=== PATIENT | female | born 1975 | race Caucasian/White ===

== ENCOUNTER 2017-04-28 00:39 | Emergency (ER) | payer OTHER ==
[~2017-04-28] VITALS: Ht 167.6 cm; Wt 84.1 kg
[~2017-04-28 00:39] MED LIST: FENO145T2 PO; KLON2TAB PO; OMEP20TA39 PO; TRAZ100 PO
[2017-04-28 00:45] VITALS: BP 153/80; PULSE 92; RESP 18; TEMP 98.1; O2SAT 97
[2017-04-28] MEDS ORDERED: TRAZ100T6 PO (01:03)
[2017-04-28] MEDS ORDERED: KLON2TAB PO (01:03)
[2017-04-28] MEDS ORDERED: OMEP40CA2 PO (01:03)
[2017-04-28] MEDS ORDERED: ZANT150T2 PO (01:03)
--- NOTE | 2017-04-28 02:22 | PD ---
HPI Chief Complaint: Abdominal Pain Time Seen by Provider: 02:08 Travel History International Travel<30 days: No Contact w/Intl Traveler<30days: No Traveled to known affect area: No History of Present Illness HPI 41-year-old female complains of right upper quadrant epigastric abdominal pain. Patient states the pain started about 2 weeks ago and has been constant since then. Patient states the pain is sharp pain. Patient states the pain radiates to the right flank area. Patient denies any fever chills. Patient states that she has intermittent nausea vomiting with the pain. Patient denies any dysuria or frequency. Patient denies any vaginal discharge or bleeding. Patient status post cholecystectomy and hysterectomy. PFSH Past Medical History Hx Anticoagulant Therapy: No Arthritis: No Asthma: No Autoimmune Disease: No Anxiety: Yes Depression: Yes Heart Rhythm Problems: No Cancer: No Cardiac Catheterization: No Cardiovascular Problems: No High Cholesterol: No Chemotherapy: No Chest Pain: No Congestive Heart Failure: No COPD: No Cerebrovascular Accident: No Diabetes: No Diminished Hearing: No Endocrine: No GERD: Yes Genitourinary: No Hiatal Hernia: No Immune Disorder: No Kidney Stones: No Medical other: Yes (THYROID NODULES) Musculoskeletal: No Neurologic: No Psychiatric: Yes Reproductive: Yes (hysterectomy) Respiratory: No Migraines: No Radiation Therapy: No Renal Failure: No Seizures: No Sickle Cell Disease: No Sleep Apnea: No Thyroid Disease: No Triglycerides - High: Yes Ulcer: No ?: Not Menopausal: No : 2 Para: 2 : 0 Past Surgical History Abdominal Surgery: Yes AICD: No Arteriovenous Shunt: No Cardiac Surgery: No Section: Yes (X1) Cholecystectomy: Yes Coronary Artery Bypass Graft: No Ear Surgery: No Endocrine Surgery: No Eye Surgery: No Gynecologic Surgery: Yes (hysterectomy...breast reduction) Hysterectomy: Yes Insulin Pump: No Joint Replacement: No Oral Surgery: No Pacemaker: No Thoracic Surgery: No Other Surgery: Yes (breast reduction) Social History Alcohol Use: Yes (social) Tobacco Use: Yes (1 ppd) Substance Use: No Allergies-Medications (Allergen,Severity, Reaction): Coded Allergies: No Known Allergies (Verified , 04/28/17) Reported Meds & Prescriptions Reported Meds & Active Scripts Active Reported Zantac (Ranitidine HCl) 150 Mg Tab 150 Mg PO BID PRN Omeprazole 40 Mg Cap 40 Mg PO DAILY Trazodone (Trazodone HCl) 100 Mg Tablet 100 Mg PO HS Klonopin (Clonazepam) 2 Mg Tab 2 Mg PO BID PRN Review of Systems General / Constitutional: No: Fever Eyes: No: Visual changes HENT: No: Headaches Cardiovascular: No: Chest Pain or Discomfort Respiratory: No: Shortness of Breath Gastrointestinal: Positive: Nausea, Vomiting, Abdominal Pain Genitourinary: No: Dysuria Musculoskeletal: No: Pain Skin: No Rash Neurologic: No: Weakness Psychiatric: No: Depression Endocrine: No: Polydipsia Hematologic/Lymphatic: No: Easy Bruising Physical Exam Narrative GENERAL: Well-nourished, well-developed patient. SKIN: Focused skin assessment warm/dry. HEAD: Normocephalic. EYES: No scleral icterus. No injection or drainage. NECK: Supple, trachea midline. No JVD or lymphadenopathy. CARDIOVASCULAR: Regular rate and rhythm without murmurs, gallops, or rubs. RESPIRATORY: Breath sounds equal bilaterally. No accessory muscle use. GASTROINTESTINAL: Abdomen soft, nondistended. Patient has a small soft tissue mass prior epigastric area with tenderness on palpation. Patient has moderate tenderness on palpation epigastric and right upper quadrant of the abdomen. No rebound tenderness. No mass. MUSCULOSKELETAL: No cyanosis, or edema. BACK: Nontender without obvious deformity. No CVA tenderness. Neurologic exam normal. Data Data Last Documented VS Vital Signs Date Time Temp Pulse Resp B/P Pulse Ox O2 Delivery O2 Flow Rate FiO2 04/28/17 03:25 79 16 125/63 95 Room Air 04/28/17 00:45 98.1 Orders Complete Blood Count With Diff (04/28/17 02:16) Comprehensive Metabolic Panel (04/28/17 02:16) Lipase (04/28/17 02:16) Prothrombin Time / Inr (Pt) (04/28/17 02:16) Act Partial Throm Time (Ptt) (04/28/17 02:16) Urinalysis - C+S If Indicated (04/28/17 02:16) Ct Abd/Pel W Iv Contrast(Rout) (04/28/17 02:16) Iv Access Insert/Monitor (04/28/17 02:16) Ecg Monitoring (04/28/17 02:16) Oximetry (04/28/17 02:16) Morphine Inj (Morphine Inj) (04/28/17 02:30) Ondansetron Inj (Zofran Inj) (04/28/17 02:30) Iohexol 350 Inj (Omnipaque 350 Inj) (04/28/17 03:26) Labs Laboratory Tests Test 04/28/17 04/28/17 01:14 02:23 White Blood Count 12.8 TH/MM3 Red Blood Count 5.08 MIL/MM3 Hemoglobin 16.8 GM/DL Hematocrit 49.4 % Mean Corpuscular Volume 97.3 FL Mean Corpuscular Hemoglobin 33.0 PG Mean Corpuscular Hemoglobin 33.9 % Concent Red Cell Distribution Width 14.1 % Platelet Count 336 TH/MM3 Mean Platelet Volume 8.7 FL Neutrophils (%) (Auto) 55.5 % Lymphocytes (%) (Auto) 34.9 % Monocytes (%) (Auto) 5.8 % Eosinophils (%) (Auto) 2.0 % Basophils (%) (Auto) 1.8 % Neutrophils # (Auto) 7.1 TH/MM3 Lymphocytes # (Auto) 4.5 TH/MM3 Monocytes # (Auto) 0.7 TH/MM3 Eosinophils # (Auto) 0.3 TH/MM3 Basophils # (Auto) 0.2 TH/MM3 CBC Comment DIFF FINAL Differential Comment Prothrombin Time 10.2 SEC Prothromb Time International 0.9 RATIO Ratio Activated Partial 26.2 SEC Thromboplast Time Sodium Level 140 MEQ/L Potassium Level 3.9 MEQ/L Chloride Level 105 MEQ/L Carbon Dioxide Level 26.2 MEQ/L Anion Gap 9 MEQ/L Blood Urea Nitrogen 11 MG/DL Creatinine 0.82 MG/DL Estimat Glomerular Filtration 76 ML/MIN Rate Random Glucose 109 MG/DL Calcium Level 8.9 MG/DL Total Bilirubin 0.2 MG/DL Aspartate Amino Transf 29 U/L (AST/SGOT) Alanine Aminotransferase 48 U/L (ALT/SGPT) Alkaline Phosphatase 64 U/L Total Protein 7.3 GM/DL Albumin 3.7 GM/DL Lipase 289 U/L Urine Color YELLOW Urine Turbidity CLEAR Urine pH 5.5 Urine Specific [place] 1.025 Urine Protein NEG mg/dL Urine Glucose (UA) NEG mg/dL Urine Ketones NEG mg/dL Urine Occult Blood NEG Urine Nitrite NEG Urine Bilirubin NEG Urine Leukocyte Esterase NEG Urine RBC /hpf Urine Squamous Epithelial 0-5 /hpf Cells Urine Bacteria OCC /hpf Urine Hyaline Casts /lpf Urine Mucus OCC /lpf Microscopic Urinalysis Comment CULT NOT INDICATED MDM Medical Decision Making Medical Screen Exam Complete: Yes Emergency Medical Condition: Yes Interpretation(s) 1508 a.m. CBC WBC 12.8. Normal differential. CMP within normal limit. UA is negative. Differential Diagnosis Differential diagnosis including abdominal wall hernia, adhesions, gastritis, PUD, pancreatitis, colitis, UTI, pyelonephritis, nephrolithiasis. Narrative Course 41-year-old female complains of epigastric and right upper quadrant abdominal pain with soft tissue mass around the epigastric area. Status post cholecystectomy. Morphine 2 mg IV. Zofran 4 mg IV. Diagnosis Primary Impression: UPPER ABDOMINAL PAIN, UNSPECIFIED Patient Instructions: General Instructions Additional Instructions: Take medications as directed. Follow-up with personal physician GI specialist if persistent problem. Return if worse. Med/Other Pt SpecificInfo: Prescription(s) given Scripts Ondansetron Odt (Zofran Odt)4 Mg Tab4 Mg SL Q6HR PRN (Nausea/Vomiting) #12 TAB Ref 0 Prov:Luke Taylor MD 04/28/17 Dicyclomine (Bentyl)10 Mg Cap10 Mg PO TID PRN (Bowel Management) #21 CAP Ref 0 Prov:Luke Taylor MD 04/28/17 Sucralfate (Carafate)1 Gm Tab1 Gm PO QID #120 TAB Ref 0 On empty stomach Prov:Luke Taylor MD 04/28/17 Pantoprazole (Protonix)20 Mg Tab20 Mg PO DAILY #30 TAB Prov:Luke Taylor MD 04/28/17 Disposition: 01 DISCHARGE HOME Condition: Stable Luke Taylor MD Apr 28, 2017 02:22
[2017-04-28] MEDS ORDERED: ONDANSETRON HCL 4 MG/2 ML VIAL IVP ONE (02:30)
[2017-04-28] MEDS ORDERED: MORPHINE SULFATE 4 MG/ML INJ IV PUSH ONE (02:30)
[2017-04-28 02:37] LABS: BLOOD, URINE NEG (NEG); GLUCOSE,URINE NEG (NEG); KETONE, URINE NEG (NEG); NITRITE,URINE NEG (NEG); PH, URINE 5.5 (5.0-8.5)
[2017-04-28 02:41] VITALS: PULSE 80; O2SAT 94
[2017-04-28 02:43] LABS: URINE COLOR YELLOW (YELLW/STRAW)
[2017-04-28 02:44] LABS: SQUAMOUS EPITHELIAL CELL URINE 0-5 /hpf (0-5)
[2017-04-28 02:44] LABS: AUTOMATED NEUTROPHIL # 7.1 TH/MM3 (1.8-7.7); BASOPHIL # 0.2 TH/MM3 (0-0.2); BASOPHIL % 1.8 % (0.0-2.0); EOSINOPHIL # 0.3 TH/MM3 (0-0.4); HEMATOCRIT 49.4 % (35.0-46.0); LYMPH % 34.9 % (9.0-44.0); LYMPHOCYTE # 4.5 TH/MM3 (1.0-4.8); MEAN CELL VOLUME 97.3 FL (80.0-100.0); MEAN CORPUSCULAR HGB CONC 33.9 % (32.0-36.0); MONO % 5.8 % (0.0-8.0); NEUT % 55.5 % (16.0-70.0); PLATELET COUNT 336 TH/MM3 (150-450); RED BLOOD COUNT 5.08 MIL/MM3 (4.00-5.30); RED CELL DISTRIBUTION WIDTH 14.1 % (11.6-17.2); WHITE BLOOD COUNT 12.8 TH/MM3 (4.0-11.0)
[2017-04-28 02:45] LABS: MUCUS URINE OCC /lpf (OCC)
[2017-04-28 02:46] LABS: BACTERIA, URINE OCC /hpf; COMMENT (UR) CULT NOT INDICATED; CULTURE IF INDICATED CULT NOT INDICATED
[2017-04-28 02:48] LABS: HEMO FLAGS DIFF FINAL
[2017-04-28 02:49] LABS: APTT (PATIENT) 26.2 SEC (24.3-30.1); INTERNATIONAL NORMALIZED RATIO 0.9 RATIO; PROTHROMBIN TIME - PATIENT 10.2 SEC (9.8-11.6)
[2017-04-28 02:53] LABS: CHLORIDE 105 MEQ/L (98-107); POTASSIUM 3.9 MEQ/L (3.5-5.1); SODIUM (NA) 140 MEQ/L (136-145)
[2017-04-28 02:57] LABS: ANION GAP 9 MEQ/L (5-15); BICARBONATE 26.2 MEQ/L (21.0-32.0); BLOOD UREA NITROGEN 11 MG/DL (7-18)
[2017-04-28 03:00] LABS: ALT (GPT) 48 U/L (10-53); AST (GOT) 29 U/L (15-37); GLOMERULAR FILTRATION RATE 76 ML/MIN (>89)
[2017-04-28 03:02] LABS: TOTAL BILIRUBIN ADULT 0.2 MG/DL (0.2-1.0)
[2017-04-28 03:03] LABS: ALKALINE PHOSPHATASE 64 U/L (45-117)
[2017-04-28 03:25] VITALS: BP 125/63; PULSE 79; RESP 16; O2SAT 95
[2017-04-28] MEDS ORDERED: IOHEXOL 350 MG/ML 10 ML VIAL (for RAD DIAG) IV ONE (03:26)
--- NOTE | 2017-04-28 03:44 | RADRPT ---
EXAM DATE/TIME: 04/28/2017 02:57 [facility] COMPARISON: CTA CHEST W 3D RECON, October 16, 2013, 21:20. INDICATIONS : Right upper quadrant and epigastric pain. IV CONTRAST: 100 cc Omnipaque 350 (iohexol) IV ORAL CONTRAST: No oral contrast ingested. RADIATION DOSE: 15.26 CTDIvol (mGy) MEDICAL HISTORY : Gastroesophageal reflux disease. SURGICAL HISTORY : section. Cholecystectomy.Hysterectomy.Breast reduction. ENCOUNTER: Initial ACUITY: 2 weeks PAIN SCALE: 6/10 LOCATION: Right upper quadrant TECHNIQUE: Volumetric scanning of the abdomen and pelvis was performed. Using automated exposure control and ad justment of the mA and/or kV according to patient size, radiation dose was kept as low as reasonably achievable to obtain optimal diagnostic quality images. DICOM format image data is available electro nically for review and comparison. FINDINGS: LOWER LUNGS: The visualized lower lungs are clear. LIVER: Homogeneous density without lesion. There is no dilation of the biliary tree. The patient is post c holecystectomy with clips in the gallbladder fossa. SPLEEN: Normal size without lesion. PANCREAS: Within normal limits. KIDNEYS: Normal in size and shape. There is no mass, stone or hydronephrosis. ADRENAL GLANDS: Within normal limits. VASCULAR: There is no aortic aneurysm. BOWEL/MESENTERY: The stomach, small bowel, and colon demonstrate no acute abnormality. There is no free intraperitone al air or fluid. The appendix is normal. ABDOMINAL WALL: There is a surgical clip in the anterior abdominal wall of the upper abdomen just to the right of mid line. There is an 18 mm surrounding fluid density collection. No inflammatory changes present. RETROPERITONEUM: There is no lymphadenopathy. BLADDER: No wall thickening or mass. REPRODUCTIVE: Uterus is absent. INGUINAL: There is no lymphadenopathy or hernia. MUSCULOSKELETAL: No acute abnormality is identified. CONCLUSION: 1. No acute finding is identified within the abdomen or pelvis. 2. There is a surgical clip in the subcutaneous fat of the anterior abdominal wall with surrounding 1 8 mm fluid collection. Clifton Tobar MD on April 28, 2017 at 3:38 Board Certified Radiologist. This report was verified electronically.
[2017-04-28] MEDS ORDERED: PANT20 PO (03:57)
[2017-04-28] MEDS ORDERED: DICY10 PO (03:57)
[2017-04-28] MEDS ORDERED: CARA1TAB6 PO (03:57)
[2017-04-28] MEDS ORDERED: ZOFR4TAB3 SL (03:58)
== END 2017-04-28 04:06 | disposition home or self-care (01) ==
LOC: PHED 00:39
DX: R10.13 Epigastric pain (principal); K21.9 Gastro-esophageal reflux disease without esophagitis; F17.200 Nicotine dependence, unspecified, uncomplicated; Z90.49 Acquired absence of other specified parts of digestive tract
CPT/HCPCS: 74177; 80053; 81001; 83690; 85025; 85610; 85730; 96374; 96375; 99284; J2270; J2405; Q9967

== ENCOUNTER 2017-06-17 15:31 | Emergency (ER) | payer OTHER ==
[~2017-06-17] VITALS: Ht 167.6 cm; Wt 76.1 kg
[~2017-06-17 15:31] MED LIST changes: +CARA1TAB6 PO; +DICY10 PO; -FENO145T2 PO; -OMEP20TA39 PO; +OMEP40CA2 PO; +PANT20 PO; -TRAZ100 PO; +TRAZ100T6 PO; +ZANT150T2 PO; +ZOFR4TAB3 SL
[2017-06-17 15:33] VITALS: BP 144/76; PULSE 79; RESP 16; TEMP 98.5
--- NOTE | 2017-06-17 16:55 | RADRPT ---
EXAM DATE/TIME: 06/17/2017 16:34 [facility] COMPARISON: No previous studies available for comparison. INDICATIONS : Stubbed toes while moving furniture 3 days ago. MEDICAL HISTORY : Gastroesophageal reflux disease SURGICAL HISTORY : section. Cholecystectomy.Hysterectomy.Breast reduction ENCOUNTER: Initial ACUITY: 3 days PAIN SCORE: 5/10 LOCATION: Right Foot, 4th digit FINDINGS: Three view examination of the right foot demonstrates no soft tissue swelling, dislocation, or fractu re. The tarsal bones appear intact. The interphalangeal and metatarsophalangeal joints are intact. The calcaneus is intact. Bony mineralization is normal. CONCLUSION: Unremarkable examination of the right foot. Sea Magana MD on June 17, 2017 at 16:53 Board Certified Radiologist. This report was verified electronically.
--- NOTE | 2017-06-17 16:57 | PD ---
HPI Chief Complaint: Injury Time Seen by Provider: 16:09 Travel History International Travel<30 days: No Contact w/Intl Traveler<30days: No Traveled to known affect area: No History of Present Illness HPI 42-year-old female presents to the emergency room for evaluation of right foot pain and swelling for the past 3 days. Patient states she was trying to push a large dresser with her foot when she felt sharp, severe pain. Pain is localized to the distal, dorsal foot especially below the second and third toes. It is worse with ambulation and when she touches the area. She has been taking ibuprofen without any relief in symptoms. Patient is concerned because of persistence of pain and swelling. No chronic medical conditions or daily medications. No paresthesias. PFSH Past Medical History Hx Anticoagulant Therapy: No Arthritis: No Asthma: No Autoimmune Disease: No Anxiety: Yes Depression: Yes Heart Rhythm Problems: No Cancer: No Cardiac Catheterization: No Cardiovascular Problems: No High Cholesterol: No Chemotherapy: No Chest Pain: No Congestive Heart Failure: No COPD: No Cerebrovascular Accident: No Diabetes: No Diminished Hearing: No Endocrine: No GERD: Yes Genitourinary: No Hiatal Hernia: No Immune Disorder: No Kidney Stones: No Musculoskeletal: No Neurologic: No Psychiatric: Yes Reproductive: Yes (hysterectomy) Respiratory: No Migraines: No Radiation Therapy: No Renal Failure: No Seizures: No Sickle Cell Disease: No Sleep Apnea: No Thyroid Disease: No Triglycerides - High: Yes Ulcer: No ?: Not Menopausal: No : 2 Para: 2 : 0 Past Surgical History Abdominal Surgery: Yes AICD: No Arteriovenous Shunt: No Cardiac Surgery: No Section: Yes (X1) Cholecystectomy: Yes Coronary Artery Bypass Graft: No Ear Surgery: No Endocrine Surgery: No Eye Surgery: No Gynecologic Surgery: Yes (hysterectomy...breast reduction) Hysterectomy: Yes Insulin Pump: No Joint Replacement: No Oral Surgery: No Pacemaker: No Thoracic Surgery: No Other Surgery: Yes (breast reduction) Social History Alcohol Use: Yes (social) Tobacco Use: No Substance Use: No Allergies-Medications (Allergen,Severity, Reaction): Coded Allergies: No Known Allergies (Verified , 06/17/17) Reported Meds & Prescriptions Reported Meds & Active Scripts Active No Active Prescriptions or Reported Medications Review of Systems Except as stated in HPI: all other systems reviewed are Neg Physical Exam Narrative GENERAL: Well-nourished, well-developed female in no acute distress. Afebrile. SKIN: Focused skin assessment warm/dry. Mild ecchymosis on the plantar aspect of the right foot between the third and fourth metatarsals HEAD: Normocephalic. EYES: No scleral icterus. No injection or drainage. NECK: Supple, trachea midline. No JVD or lymphadenopathy. CARDIOVASCULAR: Regular rate and rhythm without murmurs, gallops, or rubs. RESPIRATORY: Breath sounds equal bilaterally. No accessory muscle use. MUSCULOSKELETAL: No cyanosis. Moderate edema of the right foot. 2+ dorsalis pedis pulse. Less than 2 second capillary refill distally. Limited range of motion of the foot secondary to pain. Extreme tenderness to palpation of the dorsal foot on the third and fourth metatarsal. Data Data Last Documented VS Vital Signs Date Time Temp Pulse Resp B/P (MAP) Pulse Ox O2 Delivery O2 Flow Rate FiO2 06/17/17 15:33 98.5 79 16 144/76 (98) Orders Orders Foot, Complete ([id number]) (06/17/17 ) [facility] Medical Decision Making Medical Screen Exam Complete: Yes Emergency Medical Condition: Yes Medical Record Reviewed: Yes Differential Diagnosis Fracture, sprain, strain, contusion Narrative Course 42-year-old female presents to the emergency room for evaluation of right foot pain and swelling for the past 3 days. Patient injured her foot while using it to push off a piece of furniture to try to move it. She has been ambulatory but with a limp. Right lower extremity is neurovascularly intact with 2+ dorsalis pedis pulse. Limited range of motion secondary to pain. There is moderate edema and mild ecchymosis. X-ray shows no acute bony abnormality. Likely foot sprain given mechanism of injury. Patient declined crutches and postop shoe at this time. She was told to follow-up with a primary care physician if symptoms persist for further outpatient imaging return for worsening symptoms. She understands and agrees to plan. Diagnosis Primary Impression: Right foot sprain Qualified Codes: S93.601A - Unspecified sprain of right foot, initial encounter Referrals: Primary Care Physician Additional Instructions: Rest and drink plenty of fluids. Take ibuprofen with food as directed, as needed for pain. Apply ice to the affected area for 20 minutes at a time, as needed for pain and swelling. Follow-up with a primary care physician. Return to the emergency room for worsening symptoms. Med/Other Pt SpecificInfo: Prescription(s) given Scripts No Active Prescriptions or Reported Meds Disposition: 01 DISCHARGE HOME Condition: Stable Keisha Patterson Jun 17, 2017 16:57
== END 2017-06-17 17:05 | disposition home or self-care (01) ==
LOC: PHEFT 15:31
DX: S93.601A Unspecified sprain of right foot, initial encounter (principal); X50.0XXA Overexertion from strenuous movement or load, initial encounter; Y93.89 Activity, other specified
CPT/HCPCS: 73630; 99283

== ENCOUNTER 2017-12-24 17:37 | Emergency (ER) | payer OTHER ==
[~2017-12-24] VITALS: Ht 167.6 cm; Wt 92.0 kg
[2017-12-24 17:48] VITALS: BP 148/89; PULSE 75; RESP 16; TEMP 98.3; O2SAT 98
[2017-12-24] MEDS ORDERED: OMEGCAP PO (20:21)
--- NOTE | 2017-12-24 20:29 | PD ---
HPI Chief Complaint: Skin Problem Time Seen by Provider: 20:25 Travel History International Travel<30 days: No Contact w/Intl Traveler<30days: No Traveled to known affect area: No History of Present Illness HPI 22-year-old female presents to the emergency department with complaint of a cyst to her bikini line 3 days. She has history of a previous cyst, but nothing like this. Reports T-max of 99.2 today. Reports nausea without vomiting. Denies abnormal vaginal discharge, odor. Denies dysuria. Denies abdominal pain, vomiting. Has tried warm compresses and taking Aleve for symptom management. Rates pain 9/10. Describes it as a pressure and throbbing sensation. Constantly aggravated. Worse with palpation and pressure to the area. No known relieving factors. Primary care provider is Dr. Whalen. No known allergies. Denies significant past medical history. Has no other medical complaints. No other modifying factors or associated signs and symptoms. PFSH Past Medical History Hx Anticoagulant Therapy: No Arthritis: No Asthma: No Autoimmune Disease: No Anxiety: Yes Depression: Yes Heart Rhythm Problems: No Cancer: No Cardiac Catheterization: No Cardiovascular Problems: No High Cholesterol: No Chemotherapy: No Chest Pain: No Congestive Heart Failure: No COPD: No Cerebrovascular Accident: No Diabetes: No Diminished Hearing: No Endocrine: No GERD: Yes Genitourinary: No Headaches: No Hiatal Hernia: No Immune Disorder: No Kidney Stones: No Musculoskeletal: No Neurologic: No Psychiatric: Yes Reproductive: Yes (hysterectomy) Respiratory: No Immunizations Current: Yes Migraines: No Radiation Therapy: No Renal Failure: No Seizures: No Sickle Cell Disease: No Sleep Apnea: No Thyroid Disease: No Triglycerides - High: Yes Ulcer: No Tetanus Vaccination: Unknown Influenza Vaccination: No ?: Not Menopausal: Yes : 2 Para: 2 : 0 Past Surgical History Abdominal Surgery: Yes AICD: No Arteriovenous Shunt: No Cardiac Surgery: No Section: Yes (X1) Cholecystectomy: Yes Coronary Artery Bypass Graft: No Ear Surgery: No Endocrine Surgery: No Eye Surgery: No Gynecologic Surgery: Yes (hysterectomy...breast reduction) Hysterectomy: Yes Insulin Pump: No Joint Replacement: No Oral Surgery: No Pacemaker: No Thoracic Surgery: No Other Surgery: Yes (breast reduction) Social History Alcohol Use: Yes (social) Tobacco Use: No (vapes) Substance Use: No Allergies-Medications (Allergen,Severity, Reaction): Coded Allergies: No Known Allergies (Verified Adverse Reaction, Unknown, 12/24/17) Reported Meds & Prescriptions Reported Meds & Active Scripts Active Tramadol (Tramadol HCl) 50 Mg Tab 50 Mg PO Q4H PRN Ibuprofen 800 Mg Tab 800 Mg PO Q6HR PRN Bactrim DS (Sulfamethoxazole-Trimethoprim) 800-160 Mg Tab 1 Tab PO BID 10 Days Reported [place]-3 Fish Oil/Vitamin (Fish Oil-Cholecalciferol) 1,000-1,000 Mg Cap 1 Cap PO BID Review of Systems Except as stated in HPI: all other systems reviewed are Neg Physical Exam Narrative GENERAL: Well-nourished, well-developed female patient, in no acute distress; afebrile, nontoxic-appearing SKIN: There is an indurated area to the right buttocks/genital/Groin area which measures about 2 cm in diameter. It is fluctuant but there is no pointing or drainage. There is a zone of inflammation around it but no lymphangitis. HEAD: Atraumatic. Normocephalic. EYES: Pupils equal and round. No scleral icterus. No injection or drainage. ENT: Mucosa pink and moist. Airway patent. NECK: Trachea midline. CARDIOVASCULAR: Regular rate. RESPIRATORY: No accessory muscle use. GASTROINTESTINAL: Rounded. MUSCULOSKELETAL: No obvious deformities. No clubbing. No cyanosis. No edema. NEUROLOGICAL: Awake and alert. Oriented 3. No obvious cranial nerve deficits. Motor grossly within normal limits. Normal speech. PSYCHIATRIC: Appropriate mood and affect; insight and judgment normal. Data Data Last Documented VS Vital Signs Date Time Temp Pulse Resp B/P (MAP) Pulse Ox O2 Delivery O2 Flow Rate FiO2 12/24/17 17:48 98.3 75 16 148/89 (108) 98 Orders Orders Morphine Inj (Morphine Inj) (12/24/17 20:45) Ondansetron Odt (Zofran Odt) (12/24/17 20:45) Wound Culture And Gram Stain (12/24/17 20:33) Lidocaine 1% Inj (50 Ml) (Xylocaine 1% I (12/24/17 20:45) Lidocaine Pf 1% Inj (Xylocaine-Mpf 1% In (12/24/17 20:41) Ed Discharge Order (12/24/17 20:46) MDM Medical Decision Making Medical Screen Exam Complete: Yes Emergency Medical Condition: Yes Medical Record Reviewed: Yes Differential Diagnosis Labial abscess, abscess of buttocks, folliculitis, hidradenitis Narrative Course 42-year-old female with a abscess to her right buttocks/genital/groin area. It does not involve the labia. She is afebrile and nontoxic-appearing. Reports T- max of 99.2 today. Reports nausea without vomiting. Morphine and Zofran ordered. See my procedure note for abscess incision and drainage. Instructed patient to return to the emergency department in 48 hours for packing removal. Bactrim, tramadol, ibuprofen prescribed for home. Instructed patient to follow up with primary care provider. Patient verbalizes understanding and agreement with treatment plan. Patient is medically cleared and stable for discharge. Discussed reasons to return to the emergency department. Patient agrees with treatment plan. The patients vital signs are stable and the patient is stable for outpatient follow-up and treatment. Patient discharged home, stable and in no acute distress. Procedures Procedure Narrative INCISION AND DRAINAGE OF ABSCESS: The area was prepped and was sterilely draped. A subcutaneous wheal of 1 % Xylocaine with a total number 2 mL was used to anesthetize the area properly. A number 11 scalpel was used to make a 1 -cm incision across the area of the abscess. The abscess was drained, complex loculations were broken down, and irrigated with normal saline. Cultures were obtained. Quarter inch iodoform packing was placed in the wound. Sterile dressing applied. Patient advised to have packing removed in two days. Diagnosis Primary Impression: Abscess of buttock, right Referrals: Primary Care Physician Patient Instructions: Abscess (ED), Abscess Follow-up (ED), Abscess Incision and Drainage (DC), General Instructions Additional Instructions: Complete full course of antibiotics Warm compresses to the affected area Keep area clean and dry Ibuprofen or Tylenol as directed and as needed for pain and inflammation Return to the emergency department in 48 hours for abscess packing removal and abscess recheck Follow-up with primary care provider Return to emergency department immediately with worsening of symptoms Med/Other Pt SpecificInfo: Prescription(s) given Scripts Tramadol (Tramadol) 50 Mg Tab 50 MG PO Q4H Y for PAIN, #8 TAB 0 Refills Prov: Arlen GordonP 12/24/17 Ibuprofen (Ibuprofen) 800 Mg Tab 800 MG PO Q6HR Y for PAIN, #30 TAB 0 Refills Prov: Arlen Gordon 12/24/17 Sulfamethoxazole-Trimethoprim (Bactrim DS) 800-160 Mg Tab 1 TAB PO BID for Infection for 10 Days, #20 TAB 0 Refills Prov: Arlen Gordon 12/24/17 Disposition: 01 DISCHARGE HOME Condition: Stable Arlen Gordon Dec 24, 2017 20:29
[2017-12-24] MEDS ORDERED: TRAM50TA PO (20:35)
[2017-12-24] MEDS ORDERED: BACT800T5 PO (20:35)
[2017-12-24] MEDS ORDERED: IBUP1TAB7 PO (20:35)
[2017-12-24] MEDS ORDERED: LIDOCAINE HCL 1% PF 30 ML VIAL ONE (20:41)
[2017-12-24] MEDS ORDERED: LIDOCAINE HCL 1% 50 ML VIAL INFIL ONE (20:45)
[2017-12-24] MEDS ORDERED: ONDANSETRON ODT 4 MG TAB PO ONE (20:45)
[2017-12-24] MEDS ORDERED: MORPHINE SULFATE 4 MG/ML INJ IM ONE (20:45)
[2017-12-24] MEDS ORDERED: SULFAMETHOXAZOLE-TRIMETHOPRIM DS 800-160 MG TAB PO ONE (21:00)
== END 2017-12-24 21:20 | disposition home or self-care (01) ==
LOC: PHED 17:37 → PHEFT 21:20
DX: L02.31 Cutaneous abscess of buttock (principal); R11.0 Nausea; K21.9 Gastro-esophageal reflux disease without esophagitis; E78.1 Pure hyperglyceridemia; Z86.59 Personal history of other mental and behavioral disorders
CPT/HCPCS: 10061; 87070; 96372; 99284; J2270; 87205